=== PATIENT | female | born 1980 | race Caucasian/White ===

== ENCOUNTER 2021-09-08 19:08 | Emergency (ER) | payer BC ==
[~2021-09-08] VITALS: Ht 165.1 cm; Wt 49.9 kg
--- NOTE | 2021-09-08 19:15 | NUR ---
PT BIB [facility] 77 FROM HOME FOR OD, NO SOB OR LABORED BREATHING, AFEBRILE. NOTED TO BE MUMBLING AND MOANINGH, DIFFICULT TO OBTAIN HISTORY AT THIS TIME. SMELLS OF ETOH. BED PLACED ON LOWEST POSTION FOR SAFETY PRECAUTIONS.
--- NOTE | 2021-09-08 19:16 | NUR ---
DR. NUR AT BEDSIDE, MSE IN PROGRESS.
[2021-09-08] MEDS ORDERED: IV NORMAL SALINE 1000 ML BAG IV ONE (19:30)
--- NOTE | 2021-09-08 19:30 | NUR ---
[facility] UNIT [id number], SERIAL #[id number] SP[place]ER [place] AND [id number] [address] CHING AT BEDSIDE, PLACING PT ON HOLD.
[2021-09-08 20:03] LABS: HEMATOCRIT 40.6 % (31.2-41.9); MEAN CORPUSCULAR HEMOGLOBIN 31.8 uug (24.7-32.8); MEAN CORPUSCULAR VOLUME 94.3 fL (75.5-95.3); PLATELET COUNT (AUTO) 282 K/uL (179-408)
[2021-09-08 20:14] LABS: CARBON DIOXIDE 27 mmol/L (21-32); CHLORIDE 97 mmol/L (98-107); CREATININE 0.9 mg/dL (0.6-1.3); GLUCOSE 80 mg/dL (74-106); POTASSIUM 3.3 mmol/L (3.5-5.1); UREA NITROGEN, BLOOD 11 mg/dL (7-18)
--- NOTE | 2021-09-08 20:14 | NUR ---
EXECUTIVE RELATIONS SPECIALIST MADE AWARE, NO ONE TO ONE SITTER. PT NOTED TO BE ASLEEP AT THIS TIME, NO MOANING OR GROANING. VITALS ARE STABLE.
[2021-09-08 20:19] LABS: ACETAMINOPHEN < 2.0 ug/mL (10-30); ALANINE AMINOTRANSFERASE 27 U/L (14-59); ALKALINE PHOSPHATASE 56 U/L (50-136); ASPARTATE AMINOTRANSFERASE 26 U/L (15-37); BILIRUBIN,DIRECT 0.1 mg/dL (0.0-0.2); BILIRUBIN,TOTAL 0.3 mg/dL (0.2-1.0); TOTAL PROTEIN, SERUM 7.8 g/dL (6.4-8.2)
[2021-09-08 20:36] LABS: ETHANOL 343 MG/DL (0-0)
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
[2021-09-08] MEDS ORDERED: ZIPRASIDONE MESYLATE 20 MG VIAL IM ONE ×2 (21:28→21:30)
[2021-09-08] MEDS ORDERED: KETAMINE HCL 500 MG/10 ML INJ IV ONE ×3 (21:45→23:30)
[2021-09-08] MEDS ORDERED: KETAMINE HCL 500 MG/10 ML INJ ONE ×3 (21:50→23:38)
--- NOTE | 2021-09-08 22:27 | NUR ---
XRAY AT BEDSIDE.
[2021-09-08 23:17] LABS: *BILIRUBIN,URIN NEGATIVE (NEGATIVE); *BLOOD, URINE NEGATIVE (NEGATIVE); *CLARITY,URINE CLEAR (CLEAR); *COLOR,URINE YELLOW (YELLOW); *KETONES,URINE NEGATIVE (NEGATIVE); *UROBILINOGEN,URINE 0.2 E.U./dl (NORMAL); LEUKOCYTE ESTERASE ,URINE NEGATIVE (NEGATIVE); NITRITE, URINE NEGATIVE (NEGATIVE); UGLUCOSE NEGATIVE (NEGATIVE)
[2021-09-08 23:31] LABS: *AMPHETAMINE, URINE NEGATIVE (NEGATIVE); *CANNABINOID, URINE NEGATIVE (NEGATIVE); *COCCAINE, URINE NEGATIVE (NEGATIVE); *OPIATE, URINE NEGATIVE (NEGATIVE); *PHENCYCLIDINE SCREEN,URINE NEGATIVE (NEGATIVE)
--- NOTE | 2021-09-08 23:59 | NUR ---
PT IN BED ASLEEP, EYES CLOSED, BREATHING EVEN AND UNLABORED. VITALS STABLE.
[2021-09-09] MEDS ORDERED: LORAZEPAM 2 MG/1 ML VIAL IV ONE ×2 (00:45→02:00)
[2021-09-09] MEDS ORDERED: HALOPERIDOL LACTATE 5 MG/1 ML VIAL IV ONE (00:45)
[2021-09-09] MEDS ORDERED: HALOPERIDOL LACTATE 5 MG/1 ML VIAL ONE (00:50)
[2021-09-09] MEDS ORDERED: LORAZEPAM 2 MG/1 ML VIAL ONE ×2 (01:09→02:11)
--- NOTE | 2021-09-09 01:37 | NUR ---
Patient is resting comfortably in bed with eyes closed.
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
[2021-09-09] MEDS ORDERED: diphenhydrAMINE 50 MG/1 ML VIAL ONE (03:20)
[2021-09-09] MEDS ORDERED: diphenhydrAMINE 50 MG/1 ML VIAL IV ONE (03:45)
--- NOTE | 2021-09-09 05:36 | NUR ---
PT IN BED, EYES CLOSED, BREATHING EVEN AND UNLABORED. VITALS STABLE.
--- NOTE | 2021-09-09 07:06 | NUR ---
GAVE REPORT TO MORNING SHIFT, RN. PT NOTED TO BE IN BED, ASLEEP. BREATHING EVEN AND UNLABORED.
--- NOTE | 2021-09-09 07:26 | NUR ---
PT IS AWAKE, STILL AGITATED, SAYS THAT SHE WANTS TO GO HOME, NON-COOPERATIVE.
--- NOTE | 2021-09-09 07:35 | NUR ---
PT HAS CALMED DOWN, ALL THE RESTRAINTS RELEASED, ACCOMPANIED PT TO BATHROOM, HYGIENE SUPPLIES PROVIDED, PT REQUESTING BREAK FAST, CALLED DIETARY.
--- NOTE | 2021-09-09 08:08 | NUR ---
CALLED JOSE INFANTE FOR PSYCH EVAL.
--- NOTE | 2021-09-09 08:35 | NUR ---
HOSPITAL BF TRAY AT BEDSIDE. PT EATING WITH GOOD APETITE.
--- NOTE | 2021-09-09 10:15 | NUR ---
JOSE CARRION COMPLETED THE EVALUATION.
--- NOTE | 2021-09-09 10:20 | NUR ---
PT MADE MULTIPLE CALLS TO FAMILY [employer], A FAMILY FRIEND WILL COME AND PICK UO THE PT.
[2021-09-09 10:28] VITALS: BP 107/64
--- NOTE | 2021-09-09 10:54 | NUR ---
Patient discharged to home in stable condition. Written and verbal after care instructions given. Patient verbalizes understanding of instructions. Stressed follow up or return to ER for worsening s/s.PT WALKS IN STEADY GAIT. DENEIS ANY PAIN,N/V, DIZZINESS, HEADACHE OR ANY OTHER COMPLAIN, AX0 Addendum: 09/09/21 at 1055 by [email or web address] [email or web address].
== END 2021-09-09 10:56 | disposition home or self-care (01) ==
LOC: ER 19:11
DX: T50.912A Poisoning by multiple unspecified drugs, medicaments and biological substances, intentional self-harm, initial encounter (principal); Y92.019 Unspecified place in single-family (private) house as the place of occurrence of the external cause; T51.0X2A Toxic effect of ethanol, intentional self-harm, initial encounter; R45.1 Restlessness and agitation; Z78.1 Physical restraint status; Z88.0 Allergy status to penicillin; Z88.2 Allergy status to sulfonamides; E87.6 Hypokalemia; Z20.822 Contact with and (suspected) exposure to COVID-19
CPT/HCPCS: 36415; 71045; 80048; 80076; 80299; 80307; 80320; 81003; 82140; 84484; 84702; 85025; 85730; 87426; 93005; 96361; 96372; 96374; 96375; 96376; 99285; J1200; J1630; J2060 ×2; J3486; J3490 ×3; 70030-TC; A4663; C1758; G0480; J7030